=== PATIENT | male | born 1950 | race African-American/Black ===

== ENCOUNTER 2019-06-29 09:43 | Emergency (ER) | payer OTHER ==
[~2019-06-29] VITALS: Ht 177.8 cm; Wt 92.1 kg
--- NOTE | 2019-06-29 09:56 | NUR ---
BLOOD DRAWN AND SENT TO LAB
--- NOTE | 2019-06-29 09:56 | NUR ---
PT BIBA RA 61 From home "woke up this am felt SOB/cant catch my breath" PT IS AAOX4, NOT IN RESPIRATORY DISTRESS, HOOKED TO MONITOR, KEPT RESTED AND COMFORTABLE, WILL CONTINUE TO MONITOR.
[2019-06-29] MEDS ORDERED: CLIN150C16 PO (10:00)
[2019-06-29] MEDS ORDERED: TRAM50TA2 PO (10:00)
[2019-06-29 10:55] LABS: BASOPHILS # (AUTO) 0.1 /CMM (0.0-0.2); BASOPHILS % (AUTO) 1.1 % (0.0-2.0); HEMATOCRIT 40 % (39-51); HEMOGLOBIN 12.5 g/dL (13.5-17.5); LYMPHOCYTES # (AUTO) 2.4 /CMM (0.8-4.8); LYMPHOCYTES % (AUTO) 35.9 % (20.0-44.0); MEAN CORPUSCULAR HGB CONC 31 g/dl (31.0-36.0); MEAN CORPUSCULAR VOLUME 79 fL (80-96); MONOCYTES # (AUTO) 0.7 /CMM (0.1-1.30); MONOCYTES % (AUTO) 10.4 % (2.0-12.0); NEUTROPHILS # (AUTO) 2.8 /CMM (1.8-8.9); NEUTROPHILS % (AUTO) 42.6 % (43.0-81.0); PLATELET COUNT (AUTO) 272 /CMM (150-450); RED BLOOD CELL COUNT(AUTO) 5.06 MIL/uL (4.5-6.0); WHITE BLOOD COUNT (AUTO) 6.7 K/uL (4.3-11.0)
--- NOTE | 2019-06-29 10:59 | NUR ---
dublicate order on ekg
[2019-06-29 11:04] LABS: CALCIUM, SERUM 9.3 mg/dL (8.5-10.1); CREATININE 0.9 mg/dL (0.6-1.3); POTASSIUM 3.8 mmol/L (3.5-5.1)
[2019-06-29 11:17] LABS: ALBUMIN 3.6 g/dL (3.4-5.0); BILIRUBIN,DIRECT 0.1 mg/dL (0.0-0.2); BILIRUBIN,TOTAL 0.4 mg/dL (0.2-1.0); TOTAL PROTEIN, SERUM 7.9 g/dL (6.4-8.2)
[2019-06-29] MEDS ORDERED: IOHEXOL-350 100 ML VIAL IV ONE (13:09)
[2019-06-29] MEDS ORDERED: CT SWABBABLE VALVE TRANS SET 1 EA INFUS.SET MC ONE (13:09)
[2019-06-29] MEDS ORDERED: IV NS 0.9% 250 ML IV ONE (13:10)
--- NOTE | 2019-06-29 14:00 | NUR ---
PT WANTS TO GO HOME, PT REFUSED TESTS DONE, AWARE OF ABNORMAL LABS, STILL WANTS TO GO HOME, DR. RAMIREZ AWARE
--- NOTE | 2019-06-29 14:31 | NUR ---
PT REFUSES EKG Addendum: 06/29/19 at 1435 by RBATACLAN NOTE MEANT FOR SANJAY 10
--- NOTE | 2019-06-29 14:41 | NUR ---
Patient does not wish to proceed with medical care recommended by Dr. Massey. Patient given information related to possible complications, up to and including , which could occur as a result of leaving the hospital at this time. Patient verbalizes understanding of risks involved due to leaving against medical advice. Patient has signed AMA form.
[2019-06-29 14:43] VITALS: BP 122/75
== END 2019-06-29 14:43 | disposition left against medical advice (07) ==
LOC: ER 09:47 → EDBD 09:47 → ER 14:43
DX: R06.00 Dyspnea, unspecified (principal); R94.31 Abnormal electrocardiogram [ECG] [EKG]; R79.0 Abnormal level of blood mineral; R79.1 Abnormal coagulation profile; Z88.0 Allergy status to penicillin; Z79.899 Other long term (current) drug therapy
CPT/HCPCS: 36415; 71045; 80048; 80076; 83880; 84484; 85025; 85378; 85730; 93005; 93970; 99284; J7030; J7050; Q9967